=== PATIENT | male | born 1960 | race Caucasian/White ===

== ENCOUNTER 2018-03-13 11:09 | Emergency (ER) | payer OTHER ==
[~2018-03-13] VITALS: Ht 167.6 cm; Wt 98.0 kg
[2018-03-13 12:28] LABS: BASOPHILS # (AUTO) 0.05 x10^3/uL (0-0.1); BASOPHILS % (AUTO) 1 % (0-1); EOSINOPHILS # (AUTO) 0.01 x10^3/uL (0-0.4); EOSINOPHILS % (AUTO) 0 % (1-7); LYMPHOCYTES # (AUTO) 2.19 x10^3/uL (1-3.4); LYMPHOCYTES % (AUTO) 32 % (22-44); MD NO; MEAN CORPUSCULAR HGB CONC 33.9 g/dL (33.2-36.2); MEAN CORPUSCULAR VOLUME 91.5 fL (81-97); MEAN PLATELET VOLUME 7.5 fL (7.4-10.4); MONOCYTES # (AUTO) 0.54 x10^3/uL (0.2-0.8); MONOCYTES % (AUTO) 8 % (2-9); NEUTROPHILS % (AUTO) 59 % (42-75); PLATELET COUNT 347 x10^3/uL (130-400); RED BLOOD COUNT 5.14 x10^6/uL (4.38-5.82); RED CELL DISTRIBUTION WIDTH 17.1 % (9.4-14.8)
[2018-03-13 12:40] LABS: ALBUMIN 3.8 g/dL (3.4-5.0); ANION GAP 6 mmol/L (5-15); CHLORIDE 107 mmol/L (98-107); CREATININE 1.01 mg/dL (0.7-1.3)
[2018-03-13 12:41] LABS: MICROSCOPIC NOT IND
[2018-03-13 12:47] LABS: CULTURE INDICATED? NO
[2018-03-13 14:00] VITALS: BP 119/78
[2018-03-13] MEDS ORDERED: METH2.5T PO (14:00)
[2018-03-13] MEDS ORDERED: QUET400T PO (14:00)
[2018-03-13] MEDS ORDERED: GEMF600T3 PO (14:00)
[2018-03-13] MEDS ORDERED: FOLI-17 PO (14:00)
[2018-03-13] MEDS ORDERED: DIAZ10TA4 PO (14:00)
== END 2018-03-13 14:43 | disposition home or self-care (01) ==
LOC: ED 14:35
DX: R53.1 Weakness (principal); K60.0 Acute anal fissure; E78.5 Hyperlipidemia, unspecified; L40.9 Psoriasis, unspecified; F17.200 Nicotine dependence, unspecified, uncomplicated
CPT/HCPCS: 36415; 80048; 81003; 82040; 85025; 99284